=== PATIENT | male | born 1990 | race African-American/Black ===

== ENCOUNTER 2024-06-01 10:41 | Emergency (ER) | payer OTHER, MEDICAID ==
[~2024-06-01] VITALS: Ht 208.3 cm; Wt 181.0 kg
[2024-06-01] MEDS: cloNIDine HCL 0.1 MG TAB PO ONE (11:53)
[2024-06-01 11:54] VITALS: PULSE 71; RESP 16; O2SAT 96
[2024-06-01 12:30] LABS: Sodium 142 mmol/L (136-145)
[2024-06-01 12:31] LABS: Anion Gap 9 (5-15); Calcium 10.1 mg/dL (8.7-10.4); Carbon Dioxide 26 mmol/L (20-31)
[2024-06-01 12:35] LABS: Chloride 107 mmol/L (98-107)
[2024-06-01 12:36] LABS: BUN/Creatinine Ratio 10.3 (10.0-20.0); Blood Urea Nitrogen 15 mg/dL (9-23); Glucose 83 mg/dL (74-106)
[2024-06-01] MEDS ORDERED: ATEN-60 PO (12:57)
[2024-06-01] MEDS ORDERED: LOSA100T33 PO (12:57)
[2024-06-01 13:03] VITALS: BP 157/95; PULSE 68; RESP 16; O2SAT 96
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
== END 2024-06-01 13:07 | disposition home or self-care (01) ==
LOC: ER 10:41
DX: I10 Essential (primary) hypertension (principal); E66.01 Morbid (severe) obesity due to excess calories; Z91.148 Patient's other noncompliance with medication regimen for other reason
CPT/HCPCS: 36415; 80048

== ENCOUNTER 2024-10-31 18:24 | Emergency (ER) | payer MEDICAID ==
[~2024-10-31] VITALS: Ht 208.3 cm; Wt 190.1 kg
[~2024-10-31 18:24] MED LIST: ATEN-60 PO; LOSA100T33 PO
--- NOTE | 2024-10-31 19:18 | DVH ---
CLINICAL INDICATION: PAIN TECHNIQUE: XY L FOOT 3 VIEW XRAY Comparison: None FINDINGS: No evidence of fracture or dislocation. Joint spaces are normal. Small calcaneal spur noted. IMPRESSION: No evidence of fracture or dislocation.
[2024-10-31] MEDS: IBUPROFEN 600 MG TAB PO ONE (21:15)
[2024-10-31] MEDS: HYDROcodone-ACET 5/325MG TAB PO ONE (21:15)
--- NOTE | 2024-10-31 21:32 | ED.PDOC ---
Back pain HPI HPI Comments PT REPORTS LEFT FOOT PAIN STARTED TODAY, DENIES INJURY OR TRAUMA. NOTES HAPPENING BEFORE X 1 MONTH AGO BUT IT WHEN AWAY. NO BRUISING, SWELLING OR DEFOMRITY NOTED. NOTES NOTES NUMBNESS TO BIG TOE. Chief Complaint: Lower Extremity Time Seen by MD: 18:32 Primary Care Provider: NICHO Reviewed Notes: Nurses Notes, Medications, Allergies Allergies: Coded Allergies: NO KNOWN ALLERGIES (Unverified , 06/01/24) Home Meds Active Scripts Ibuprofen (Ibuprofen) 800 Mg Tab, 800 MG PO Q8HP PRN for 7 Days, #21 TAB Prov:TRACEY ADAMS 10/31/24 Atenolol (Atenolol) 25 Mg Tab, 1 TAB PO DAILY, #30 TAB 5 Refills Prov:MILES MATHEWS MD 06/01/24 Losartan Potassium & Hydrochlo (Losartan Potassium/Hydroc) 1 Tab Tab, 1 TAB PO DAILY PRN for 30 Days, #30 TAB 5 Refills Prov:MILES MATHEWS MD 06/01/24 Information Source: Patient Mode of Arrival: Ambulatory Past Medical History PAST MEDICAL HISTORY: HTN Surgical History: Denies all surgeries Family History Family History: Unknown Social History Smoker: Non-Smoker Alcohol: Denies ETOH Use Drugs: Denies Drug Use Lives In: Home Constitutional: denies: chills, diaphoresis, fatigue, fever, malaise, sweats, weakness, others EENTM: denies: blurred vision, double vision, ear bleeding, ear discharge, ear drainage, ear pain, ear ringing, eye pain, eye redness, hearing loss, mouth pain, mouth swelling, nasal discharge, nose bleeding, nose congestion, nose pain, photophobia, tearing, throat pain, throat swelling, voice changes, others Respiratory: denies: cough, hemoptysis, orthopnea, SOB at rest, shortness of breath, SOB with excertion, stridor, wheezing, others Cardiovascular: denies: chest pain, dizzy spells, diaphoresis, Dyspnea on exertion, edema, irregular heart beat, left arm pain, lightheadedness, palpitations, PND, syncope, others Gastrointestinal: denies: abdomen distended, abdominal pain, blood streaked bowels, constipated, diarrhea, dysphagia, difficulty swallowing, hematemesis, melena, nausea, poor appetite, poor fluid intake, rectal bleeding, rectal pain, vomiting, others Genitourinary: denies: burning, dysuria, flank pain, frequency, hematuria, incontinence, penile discharge, penile sore, pain, testicle pain, testicle swelling, urgency, others Neurological: denies: dizziness, fainting, headache, left sided numbness, left sided weakness, numbness, paresthesia, pre-existing deficit, right sided numbness, right sided weakness, seizure, speech problems, tingling, tremors, wea kness, others Musculoskeletal: reports: joint pain, muscle stiffness, others (LEFT FOOT PAIN) Integumetry: denies: bruises, change in color, change in hair/nails, dryness, laceration, lesions, lumps, rash, wounds, others Allergic/Immunocompromised: denies: Difficulty Healing, Frequent Infections, Hives, Itching, others Hematologic/Lymphatic: denies: anemia, blood clots, easy bleeding, easy bruising, swollen glands, others Endocrine: denies: excessive hunger, excessive sweating, excessive thirst, excessive urination, flushing, intolerance to cold, intolerance to heat, unexplained weight gain, unexplained weight loss, others Psychiatric: denies: anxiety, bipolar disorder, depression, hopeless, panic disorder, schizophrenia, sleepless, suicidal, others Physical Exam General Appearance: No Apparent Distress, Normal HEENT: Pharynx Normal Neck: Full Range of Motion, Non-Tender Respiratory: Lungs Clear, No Respiratory Distress, Normal Breath Sounds Cardiovascular: No Murmur, Normal Peripheral Pulses, Regular Rate/Rhythm Breast Exam: Deferred Gastrointestinal: Non Tender, Soft Genitalia: Deferred Pelvic: Deferred Rectal: Deferred Extremities: Normal capillary refill, Normal inspection, Normal range of mo tion, Non-tender, No pedal edema Musculoskeletal : Location: Left Extremity Location: Foot (MILD TENDERNESS PALPATED DORSUM ASPECT OF LEFT FOOT AND HEEL PALMAR ASPECT NOTED EDEMA, LESIONS, LACERATIONS ABRASIONS NO NOTED ERYTHEMA STRENGTH SENSORY MOTION INTACT POSITIVE PEDAL PULSE) Apperance: Normal Neurologic: Alert, mangle tender cloth II-XII nml as Tested, No Motor Deficits, Normal Affect, Normal Mood, No Sensory Deficits Cerebellar Function: Normal Reflexes: Normal Skin: Dry, Normal Color, Warm Lymphatic: No Adenopathy Was a procedure done? Was a procedure done?: No Back Pain Differential Dx Differential Diagnosis: Fracture, Musculoskeletal Pain X-Ray, Labs, Meds, VS Vital Signs Date Time Temp Pulse Resp B/P (MAP) Pulse Ox O2 Delivery O2 Flow Rate FiO2 10/31/24 22:39 98.4 70 16 152/101 (118) 95 98.4 10/31/24 21:49 77 18 97 Room Air 10/31/24 21:16 98.1 77 18 138/101 (113) 97 98.1 10/31/24 21:15 98.3 10/31/24 18:42 97.7 84 17 154/91 (112) 97 97.7 Lab Test 10/31/24 18:40 Range/Units POC Glucose 119 H 70-106 mg/dl Current Medications Medications (Trade) Dose Ordered Sig/Zak Route Start Time Stop Time Status Last Admin Acetaminophen/ Hydrocodone Bitart ([place] 5/325MG Tab) 1 tab ONCE ONCE PO 10/31/24 21:00 10/31/24 21:01 DC 10/31/24 21:15 Ibuprofen (Motrin Tablet) 600 mg ONCE ONCE PO 10/31/24 21:00 10/31/24 21:01 DC 10/31/24 21:15 X-Ray, Labs, Meds, VS Comment RIGHT FOOT X-RAY SHOWS SMALL CALCANEUS BONE SPUR SHOWS NO ACUTE FRACTURES OSSEOUS LESIONS SUBLUXATIONS OR DISLOCATIONS. SCRIPT IBUPROFEN TO PATIENT'S PHARMACY ADVISED TO TAKE MEDICATIONS PRESCRIBED SIDE EFFECTS DISCUSSED. ADVISED PATIENT TO FOLLOW UP WITH HIS PCP 2-3 DAYS NECESSARY CONSIDER FURTHER IMAGING SUCH MRI IF SYMPTOMS PERSIST. ER RETURN PRECAUTIONS GIVEN PATIENT INDICATES UNDERSTANDING AND AGREES WITH DISCHARGE PLAN OF CARE. Time of 1ST Reevaluation: 19:55 Reevaluation 1ST: Unchanged Time of 2ND Reevaluation: 21:33 Reevaluation 2ND: Improved Patient Education/Counseling: Diagnosis, Treatment, Prognosis, Need For Follow Up Family Education/Counseling: No Family Present Departure 1 Departure Time of Disposition: 21:33 Impression: Primary Impression: Calcaneal spur of foot Qualified Codes: M77.30 - Calcaneal spur, unspecified foot Disposition: 01 HOME / SELF CARE / HOMELESS Condition: Stable e-Prescriptions Ibuprofen (Ibuprofen) 800 Mg Tab 800 MG PO Q8HP PRN for 7 Days, #21 TAB Prov: TRACEY ADAMS 10/31/24 Discharged With: Self Critical Care Note Critical Care Time?: No Stability Stability form required: TRACEY Diaz October 31, 2024 21:32
[2024-10-31] MEDS ORDERED: IBUP-1456 PO (21:34)
[2024-10-31 22:39] VITALS: BP 152/101; PULSE 70; RESP 16; TEMP 98.4; O2SAT 95
== END 2024-10-31 22:38 | disposition home or self-care (01) ==
LOC: ER 18:24
DX: M77.32 Calcaneal spur, left foot (principal); I10 Essential (primary) hypertension; Z79.899 Other long term (current) drug therapy
CPT/HCPCS: 73630; 82947; 82962